=== PATIENT | male | born 1970 | race African-American/Black ===

== ENCOUNTER 2016-04-30 11:18 | Outpatient (CLI) ==
--- NOTE | 2016-04-30 14:03 | DI ---
EXAM: Lumbar spine five view HISTORY: Low back pain COMPARISON: None TECHNIQUE: Five views lumbar spine were performed, including oblique views. FINDINGS: Sacroiliac joints intact. Sacral arcuate intact. Vertebral bodies normal height. No fr acture. Multilevel marginal osteophyte formation. Mild intervertebral disc space narrowing at L5-S 1. No spondylolisthesis. Mild facet arthrosis in the lower spine. IMPRESSION: Mild chronic discogenic degenerative disease and facet arthrosis.
== END 2016-04-30 11:19 | disposition home or self-care (01) ==
LOC: RAD 11:18
PROVIDERS: ATTEND Nurse Practitioner Family
DX: M54.5 Low back pain (principal)

== ENCOUNTER 2016-05-30 12:41 | Outpatient (CLI) | END 2016-05-30 12:42 | disposition home or self-care (01) | LOC: LAB 12:41 | PROVIDERS: ATTEND Dermatology | DX: L80 Vitiligo (principal) | CPT/HCPCS: 36415; 84443; 86038 ==